=== PATIENT | male | born 1965 | race Caucasian/White ===

== ENCOUNTER → 2022-04-28 07:07 | Outpatient (BNVA) | payer OTHER, SELFPAY | PROVIDERS: PCP Nurse Practitioner; Visit Provider Student in an Organized Health Care Education/Training Program | DX: G56.32 Lesion of radial nerve, left upper limb (principal); M19.131 Post-traumatic osteoarthritis, right wrist; M19.132 Post-traumatic osteoarthritis, left wrist | CPT/HCPCS: 73130 ==

== ENCOUNTER 2022-04-28 09:06 | Outpatient (CLI) | payer OTHER, SELFPAY | END 2022-04-28 09:07 | disposition home or self-care (01) | LOC: SPT 09:13 | PROVIDERS: PCP Nurse Practitioner; Visit Provider Student in an Organized Health Care Education/Training Program | DX: Z46.89 Encounter for fitting and adjustment of other specified devices (principal); M79.642 Pain in left hand | CPT/HCPCS: 97760; L3908 ==

== ENCOUNTER → 2022-06-13 11:21 | Outpatient (BNVA) | payer OTHER, SELFPAY | PROVIDERS: PCP Nurse Practitioner; Visit Provider Nurse Practitioner Family | DX: Z13.6 Encounter for screening for cardiovascular disorders (principal); M25.562 Pain in left knee; M25.561 Pain in right knee; G89.29 Other chronic pain; M25.511 Pain in right shoulder; M25.512 Pain in left shoulder; E78.5 Hyperlipidemia, unspecified; Z82.49 Family history of ischemic heart disease and other diseases of the circulatory system | CPT/HCPCS: 80061; 85025 ==

== ENCOUNTER 2022-06-20 14:57 | Outpatient (CLI) | payer OTHER, SELFPAY ==
--- NOTE | 2022-06-20 15:21 | XRR_ITS ---
PROCEDURE INFORMATION: Exam: XR Right Shoulder Exam date and time: 06/20/2022 3:33 PM Age: 57 years old Clinical indication: Shoulder; Right; Patient HX: History--chronic pain; Additional info: M25.511 - pain in right shoulder TECHNIQUE: Imaging protocol: Radiologic exam of the Right shoulder. Views: 2 or more views. Total images: 3 COMPARISON: No relevant prior studies available. FINDINGS: Bones/joints: Mild AC joint space narrowing and minimal osteophyte formation. No acute fracture nor subluxation. No osseous erosion nor periosteal reaction. Soft tissues: Normal. XR/XR shoulder RT min 2V* [id number] IMPRESSION: No acute osseous pathology.
--- NOTE | 2022-06-20 15:21 | XRR_ITS ---
PROCEDURE INFORMATION: Exam: XR Left Shoulder Exam date and time: 06/20/2022 3:33 PM Age: 57 years old Clinical indication: Shoulder; Left; Patient HX: History--chronic pain; Additional info: M25.512 - pain in left shoulder TECHNIQUE: Imaging protocol: Radiologic exam of the Left shoulder. Views: 2 or more views. Total images: 2 COMPARISON: No relevant prior studies available. FINDINGS: Bones/joints: Normal. Soft tissues: Normal. XR/XR shoulder LT min 2V* [id number] IMPRESSION: No acute findings.
--- NOTE | 2022-06-20 15:21 | XRR_ITS ---
PROCEDURE INFORMATION: Exam: XR Left Knee Exam date and time: 06/20/2022 3:33 PM Age: 57 years old Clinical indication: Knee; Left; Patient HX: History--chronic pain; Additional info: M25.562 - pain in left knee TECHNIQUE: Imaging protocol: Radiologic exam of the Left knee. Views: 3 views. Total images: 3 COMPARISON: No relevant prior studies available. FINDINGS: Bones/joints: Normal. Soft tissues: Normal. XR/XR knee LT 3V* [id number] IMPRESSION: No acute findings.
--- NOTE | 2022-06-20 15:21 | XRR_ITS ---
PROCEDURE INFORMATION: Exam: XR Right Knee Exam date and time: 06/20/2022 3:33 PM Age: 57 years old Clinical indication: Knee; Right; Patient HX: History--chronic pain; Additional info: M25.561 - pain in right knee TECHNIQUE: Imaging protocol: Radiologic exam of the Right knee. Views: 3 views. Total images: 1394 COMPARISON: No relevant prior studies available. FINDINGS: Bones/joints: Medial compartment mild degenerative changes are noted with joint space narrowing and osteophyte formation. No acute fracture nor subluxation. No osseous erosion nor periosteal reaction. Soft tissues: Normal. XR/XR knee RT 3V* [id number] IMPRESSION: 1. Medial compartment mild degenerative changes are noted with joint space narrowing and osteophyte formation. 2. No acute osseous pathology.
== END 2022-06-20 14:58 | disposition home or self-care (01) ==
PROVIDERS: PCP Nurse Practitioner; Visit Provider Nurse Practitioner Family
DX: M25.562 Pain in left knee (principal); M25.561 Pain in right knee; G89.29 Other chronic pain; M25.512 Pain in left shoulder; M25.511 Pain in right shoulder
CPT/HCPCS: 73030; 73562

== ENCOUNTER 2022-09-24 06:00 | Outpatient (RCR) | payer OTHER, SELFPAY | END 2022-09-24 23:59 | disposition home or self-care (01) | LOC: TPT 06:00 | PROVIDERS: PCP Nurse Practitioner; Visit Provider Family Medicine | DX: M25.511 Pain in right shoulder (principal) | CPT/HCPCS: 97110; 97161 ==

== ENCOUNTER → 2022-11-11 15:39 | Outpatient (BNVA) | payer OTHER, SELFPAY | PROVIDERS: PCP Nurse Practitioner; Visit Provider Nurse Practitioner Family | DX: E78.5 Hyperlipidemia, unspecified (principal) | CPT/HCPCS: 80061 ==

== ENCOUNTER → 2023-07-02 09:16 | Outpatient (BNVA) | payer OTHER, SELFPAY | PROVIDERS: PCP Nurse Practitioner; Visit Provider Nurse Practitioner Family | DX: R05.9 Cough, unspecified (principal); J22 Unspecified acute lower respiratory infection | CPT/HCPCS: 87400; 87426 ==

== ENCOUNTER → 2025-06-08 16:21 | Outpatient (BNVA) | payer OTHER, SELFPAY | PROVIDERS: PCP Nurse Practitioner; Visit Provider Nurse Practitioner Family | DX: R21 Rash and other nonspecific skin eruption (principal) | CPT/HCPCS: 86003; 86008 ==